=== PATIENT | male | born 1980 | race Caucasian/White ===

== ENCOUNTER 2017-07-21 19:35 | Inpatient (IN) | payer BC, MEDICAID ==
[~2017-07-21] VITALS: Ht 165.1 cm; Wt 132.9 kg
[2017-07-21] MEDS ORDERED: LITH300C3 PO (21:15)
[2017-07-21] MEDS ORDERED: LACT30L PO (21:15)
[2017-07-21] MEDS ORDERED: QUET200T PO (21:15)
[2017-07-21] MEDS ORDERED: METF850T2 PO (21:15)
[2017-07-21] MEDS ORDERED: ATEN25TA PO (21:15)
[2017-07-21] MEDS ORDERED: APIX5TAB PO (21:15)
[2017-07-21] MEDS ORDERED: INSU100V12 SQ (21:15)
[2017-07-21] MEDS ORDERED: DSS100 PO (21:15)
[2017-07-21] MEDS ORDERED: ESOM20CA31 PO (21:15)
[2017-07-21] MEDS ORDERED: METO25XL PO (21:15)
[2017-07-21] MEDS ORDERED: LEVE500L PO (21:15)
[2017-07-21] MEDS ORDERED: FURO80 PO (21:15)
[2017-07-21] MEDS ORDERED: GLIP5 PO (21:15)
[2017-07-21] MEDS ORDERED: ISOS30TA6 PO (21:15)
[2017-07-21] MEDS ORDERED: TRAZ-147 PO (21:15)
[2017-07-21] MEDS ORDERED: ALPR0.5T8 PO (21:15)
[2017-07-21] MEDS ORDERED: ATOR40TA28 PO (21:15)
[2017-07-21] MEDS ORDERED: INSNOV SQ (21:15)
[2017-07-21] MEDS ORDERED: ARIP15TA2 PO (21:15)
[2017-07-22 07:43] LABS: GLUCOSE,POINT OF CARE 342 MG/DL (70-110)
[2017-07-22] MEDS ORDERED: LORazepam 2 MG/ML VIAL ONE (08:02)
[2017-07-22] MEDS ORDERED: DiphenhydrAMINE HCL 50 MG/ML VIAL ONE (08:02)
[2017-07-22] MEDS ORDERED: HALOPERIDOL LACTATE 5 MG/ML VIAL ONE (08:02)
[2017-07-22] MEDS ORDERED: LORazepam 2 MG/ML VIAL IM ONE (08:15)
[2017-07-22] MEDS ORDERED: HALOPERIDOL LACTATE 5 MG/ML VIAL IM ONE (08:15)
[2017-07-22] MEDS ORDERED: DiphenhydrAMINE HCL 50 MG/ML VIAL IM ONE (08:15)
[2017-07-22] MEDS ORDERED: SODIUM CHLORIDE 0.9% 1,000 ML IV ONE (08:15)
[2017-07-22 08:27] LABS: BASOPHILS % (AUTO) 0.6 % (0.0-2.0); EOSINOPHILS % (AUTO) 1.1 % (1.0-6.0); HEMATOCRIT 47.4 % (41-53); HEMOGLOBIN 16.5 g/dL (13.5-17.5); LYMPHOCYTES # (AUTO) 1.6 K/uL (1.0-4.8); LYMPHOCYTES % (AUTO) 21.2 % (22.0-44.0); MEAN CORPUSCULAR HEMOGLOBIN 31.7 pg (26.0-34.0); MEAN CORPUSCULAR HGB CONC 34.7 G/dL (31.0-37.0); MEAN CORPUSCULAR VOLUME 91 fL (80-100); MONOCYTES # (AUTO) 0.4 K/uL (0.1-1.0); MONOCYTES % (AUTO) 4.9 % (2.0-9.0); NEUTROPHILS # (AUTO) 5.4 K/uL (1.8-7.7); NEUTROPHILS % (AUTO) 72.2 % (40.0-70.0); PLATELET COUNT (AUTO) 220 K/uL (150-450); RED CELL DISTRIBUTION WIDTH 13.4 % (11.5-14.5); WHITE BLOOD COUNT (AUTO) 7.5 K/uL (4.5-11.0)
[2017-07-22 08:42] LABS: ANION GAP 10 mmol/L (8-16); CALCIUM, TOTAL 9.3 mg/dL (8.8-10.5); CARBON DIOXIDE 25 mmol/L (22-29); CHLORIDE 98 mmol/L (98-107); CREATININE 0.98 mg/dL (0.60-1.30); GLOMERULAR FILTR. RATE CALC > 60 mL/min (>60); POTASSIUM 4.1 mmol/L (3.5-5.1); SODIUM SERUM 133 mmol/L (136-145); UREA NITROGEN, BLOOD 11 mg/dL (7-18)
[2017-07-22] MEDS ORDERED: ZOLPIDEM TARTRATE 10 MG TABLET PO PRN (08:45)
[2017-07-22] MEDS ORDERED: QUEtiapine FUMARATE 100 MG TABLET PO PRN (08:45)
[2017-07-22] MEDS ORDERED: LORazepam 2 MG TABLET PO PRN (08:45)
[2017-07-22 08:49] LABS: ALANINE AMINOTRANSFERASE 83 U/L (12-78); ALBUMIN 3.6 g/dL (3.4-5.0); ASPARTATE AMINOTRANSFERASE 26 U/L (15-37); BILIRUBIN,TOTAL 0.6 mg/dL (0.1-1.0); TOTAL PROTEIN, SERUM 6.9 g/dL (6.4-8.2)
[2017-07-22] MEDS: LITHIUM CARBONATE 300 MG TABLET PO SCH (09:15)
[2017-07-22] MEDS: ARIPiprazole 15 MG TABLET PO SCH (09:16)
[2017-07-22 09:33] LABS: GLUCOSE,POINT OF CARE 304 MG/DL (70-110)
[2017-07-22 09:40] LABS: APPEARANCE,URINE CLEAR (CLEAR); GLUCOSE, URINE (UA) >=1000 mg/dL (NEGATIVE); KETONES,URINE NEGATIVE (NEGATIVE); LEUKOCYTE ESTERASE ,URINE NEGATIVE (NEGATIVE); OCCULT BLOOD,URINE NEGATIVE (NEGATIVE); PH,URINE 6.5 (5.0-8.0); PROTEIN,URINE NEGATIVE (NEGATIVE)
[2017-07-22 09:41] LABS: ADD UA MICROSCOPIC YES
[2017-07-22] MEDS ORDERED: INSULIN REGULAR, HUMAN 100 UNITS/ML IVP ONE (09:45)
[2017-07-22 10:00] LABS: RBC,URINE None Seen /HPF (0-2); SQUAMOUS EPITHELIAL CELL,UR Rare /LPF (None Seen); WBC,URINE 0-2 /HPF (0-5)
[2017-07-22 11:02] LABS: GLUCOSE,POINT OF CARE 251 MG/DL (70-110)
[2017-07-22 12:12] LABS: GLUCOSE,POINT OF CARE 237 MG/DL (70-110)
[2017-07-22 13:07] LABS: GLUCOSE COMMENT 1 Doctor Notified; GLUCOSE,POINT OF CARE 229 MG/DL (70-110)
[2017-07-22 14:32] LABS: GLUCOSE COMMENT 1 Doctor Notified; GLUCOSE,POINT OF CARE 214 MG/DL (70-110)
[2017-07-22 16:57] LABS: GLUCOSE,POINT OF CARE 210 MG/DL (70-110)
[2017-07-22] MEDS ORDERED: DEXTROSE 50%-WATER 25 GM/50 ML SYRINGE IVP PRN (20:00)
[2017-07-22 20:27] VITALS: BP 131/73
[2017-07-22] MEDS: QUEtiapine FUMARATE 200 MG TABLET PO SCH (21:13)
[2017-07-22 21:52] LABS: GLUCOSE,POINT OF CARE 276 MG/DL (70-110)
[2017-07-22] MEDS: INSULIN ASPART 100 UNITS/ML SQ PRN (23:25)
[2017-07-23] MEDS ORDERED: INFLUENZA VIRUS VACCINE QVS 2017-18 (3YR+)/PF 60 MCG/0.5 ML SYRINGE IM ONE (01:30)
[2017-07-23] MEDS ORDERED: PNEUMOCOCCAL VACCINE POLYVALENT 0.5 ML VIAL [PPSV23] IM ONE (02:00)
[2017-07-23 06:03] LABS: GLUCOSE COMMENT 1 Received Meds; GLUCOSE,POINT OF CARE 259 MG/DL (70-110)
[2017-07-23] MEDS: INSULIN ASPART 100 UNITS/ML SQ PRN ×4 (06:59→21:09)
[2017-07-23 07:16] LABS: CHOL/HDL RATIO 4.4 (4.2-7.3)
[2017-07-23 08:21] VITALS: BP 112/69
[2017-07-23] MEDS ORDERED: LOPERAMIDE HCL 2 MG CAPSULE PO PRN (08:30)
[2017-07-23] MEDS ORDERED: IBUPROFEN 600 MG TABLET PO PRN (08:30)
[2017-07-23] MEDS ORDERED: BENZOCAINE/MENTHOL LOZENGE [8 LOZENGES/PACKET] MM PRN (08:30)
[2017-07-23] MEDS ORDERED: ONDANSETRON HCL 4 MG TABLET PO PRN (08:30)
[2017-07-23] MEDS ORDERED: PETROLATUM,WHITE 71 GM JELLY TP PRN (08:30)
[2017-07-23] MEDS ORDERED: MAG HYDROX/AL HYDROX/SIMETH ES 30 ML SUSPENSION UDCUP PO PRN (08:30)
[2017-07-23] MEDS ORDERED: ACETAMINOPHEN 325 MG TABLET PO PRN (08:30)
[2017-07-23] MEDS ORDERED: CloNIDine HCL 0.1 MG TABLET PO PRN (08:30)
[2017-07-23] MEDS ORDERED: ALBUTEROL SULFATE HFA 90 MCG/PUFF 8 GM INHALER IH PRN (08:30)
[2017-07-23] MEDS ORDERED: BACITRACIN 28.4 GM OINTMENT TP PRN (08:30)
[2017-07-23] MEDS ORDERED: MAGNESIUM HYDROXIDE SUSPENSION 30 ML UDCUP PO PRN (08:30)
[2017-07-23] MEDS: ARIPiprazole 15 MG TABLET PO SCH (09:37)
[2017-07-23] MEDS: DOCUSATE SODIUM 100 MG CAPSULE PO SCH (09:37)
[2017-07-23] MEDS: APIXABAN 5 MG TABLET PO SCH ×2 (09:37→16:24)
[2017-07-23 09:38] LABS: GLUCOSE,POINT OF CARE 352 MG/DL (70-110)
[2017-07-23] MEDS: LevETIRAcetam 100 MG/ML 5 ML SOLUTION UDCUP PO SCH ×2 (09:38→16:25)
[2017-07-23] MEDS: ISOSORBIDE MONONITRATE 30 MG ER TABLET PO SCH (09:38)
[2017-07-23] MEDS: ATORVASTATIN CALCIUM 40 MG TABLET PO SCH (09:39)
[2017-07-23] MEDS: OMEPRAZOLE 20 MG CAPSULE PO SCH (09:39)
[2017-07-23] MEDS: NICOTINE 21 MG/24 HOUR PATCH TD SCH (09:39)
[2017-07-23] MEDS: FUROSEMIDE 80 MG TABLET PO SCH ×2 (09:39→16:24)
[2017-07-23] MEDS: INSULIN DETEMIR 100 UNITS/ML SQ SCH (09:41)
[2017-07-23 11:13] LABS: GLUCOSE,POINT OF CARE 276 MG/DL (70-110)
[2017-07-23] MEDS: LITHIUM CARBONATE 300 MG TABLET PO SCH (12:49)
[2017-07-23] MEDS: MetFORMIN HCL 850 MG TABLET PO SCH ×2 (12:49→16:24)
[2017-07-23] MEDS: GlipiZIDE 5 MG TABLET PO SCH (16:24)
[2017-07-23 16:53] LABS: GLUCOSE,POINT OF CARE 318 MG/DL (70-110)
[2017-07-23] MEDS: QUEtiapine FUMARATE 200 MG TABLET PO SCH (21:00)
[2017-07-23 21:13] LABS: GLUCOSE,POINT OF CARE 238 MG/DL (70-110)
[2017-07-23 21:15] VITALS: BP 114/65
[2017-07-24 06:12] LABS: GLUCOSE COMMENT 1 Received Meds; GLUCOSE,POINT OF CARE 226 MG/DL (70-110)
[2017-07-24] MEDS: MetFORMIN HCL 850 MG TABLET PO SCH ×3 (06:31→16:07)
[2017-07-24] MEDS: GlipiZIDE 5 MG TABLET PO SCH ×2 (06:31→16:07)
[2017-07-24] MEDS: INSULIN ASPART 100 UNITS/ML SQ PRN ×2 (06:43→11:45)
[2017-07-24 08:18] VITALS: BP 113/73
[2017-07-24] MEDS: DOCUSATE SODIUM 100 MG CAPSULE PO SCH (08:20)
[2017-07-24] MEDS: ARIPiprazole 15 MG TABLET PO SCH (08:21)
[2017-07-24] MEDS: OMEPRAZOLE 20 MG CAPSULE PO SCH (08:21)
[2017-07-24] MEDS: APIXABAN 5 MG TABLET PO SCH ×2 (08:21→16:07)
[2017-07-24] MEDS: ATORVASTATIN CALCIUM 40 MG TABLET PO SCH (08:21)
[2017-07-24] MEDS: FUROSEMIDE 80 MG TABLET PO SCH ×2 (08:21→16:07)
[2017-07-24] MEDS: ISOSORBIDE MONONITRATE 30 MG ER TABLET PO SCH (08:21)
[2017-07-24] MEDS: NICOTINE 21 MG/24 HOUR PATCH TD SCH (08:23)
[2017-07-24] MEDS: LevETIRAcetam 100 MG/ML 5 ML SOLUTION UDCUP PO SCH ×2 (08:23→16:08)
[2017-07-24] MEDS: INSULIN DETEMIR 100 UNITS/ML SQ SCH (08:30)
[2017-07-24] MEDS: LITHIUM CARBONATE 300 MG TABLET PO SCH (09:43)
[2017-07-24 11:48] LABS: GLUCOSE,POINT OF CARE 282 MG/DL (70-110)
[2017-07-24] MEDS ORDERED: LEVE500T53 PO (12:55)
[2017-07-24] MEDS ORDERED: OMEP20 PO (13:01)
[2017-07-24 16:22] LABS: GLUCOSE,POINT OF CARE 274 MG/DL (70-110)
== END 2017-07-24 16:15 | disposition home or self-care (01) | DRG 885 ==
LOC: EMS 19:39 → 3EC 07-22 17:46
PROVIDERS: ADMIT Psychiatry & Neurology Psychiatry; ATTEND Psychiatry & Neurology Child & Adolescent Psychiatry
DX: F25.9 Schizoaffective disorder, unspecified (principal); I11.0 Hypertensive heart disease with heart failure; E11.65 Type 2 diabetes mellitus with hyperglycemia; I50.9 Heart failure, unspecified; E66.01 Morbid (severe) obesity due to excess calories; G40.909 Epilepsy, unspecified, not intractable, without status epilepticus; I48.91 Unspecified atrial fibrillation; E78.5 Hyperlipidemia, unspecified; F17.210 Nicotine dependence, cigarettes, uncomplicated; G47.33 Obstructive sleep apnea (adult) (pediatric); J44.9 Chronic obstructive pulmonary disease, unspecified; K21.9 Gastro-esophageal reflux disease without esophagitis; K59.00 Constipation, unspecified; Z79.899 Other long term (current) drug therapy; Z95.0 Presence of cardiac pacemaker; Z71.6 Tobacco abuse counseling; Z88.2 Allergy status to sulfonamides; Z28.21 Immunization not carried out because of patient refusal
CPT/HCPCS: 51702; 82948; 82962; 87081; 96372; 99285; J1200; J1630; J1815; J2060; J7030